=== PATIENT | female | born 1970 | race African-American/Black ===

== ENCOUNTER 2019-10-13 16:29 | Emergency (ER) | payer MEDICARE, MEDICAID, SELFPAY ==
--- NOTE | ~2019-10-13 | XR_ITS ---
EXAMINATION: XR chest 2V EXAM DATE: 10/13/2019 17:09 INDICATION: Heart fluttering. TECHNIQUE: Frontal and lateral projections of the chest obtained and reviewed. Comparison is made to prior examination from 05/06/2011. FINDINGS: The lungs are clear. There are no pleural effusions. Borderline heart size. There is no pn eumothorax suspected. Mild to moderate sized thoracic endplate osteophytes. IMPRESSION: No acute cardiopulmonary findings. Reviewed, dictated and finalized at location A.
--- NOTE | 2019-10-13 16:40 | ECG_ITS ---
Measurements Intervals [place] Rate: 89 P: 66 CA: 214 QRS: 50 QRSD: 158 T: 81 QT: 419 QTc: 510 Interpretive Statements SINUS RHYTHM WITH FIRST DEGREE AV BLOCK LEFT BUNDLE BRANCH BLOCK BASELINE WANDER- I, II, AVR, AVL, AVF ABNORMAL ECG Electronically Signed On 10-14-2019 7:08:18 CDT by Darryl Moran D.O.
[2019-10-13 16:45] VITALS: BP 131/71; PULSE 88; RESP 20; TEMP 37.1; O2SAT 98
--- NOTE | 2019-10-13 17:08 | ED.CHESTPAIN ---
HPI - Chest Pain General Chief Complaint: Chest Pain Stated Complaint: pain in neck heart flutters Time Seen by Provider: 10/13/19 17:00 Source: patient Mode of arrival: ambulatory Limitations: no limitations History of Present Illness HPI narrative: Radha Rodriguez is a 49 yo female with a PMH of HTN, insulin-dependent diabetes, multiple cardiac stent placement, who comes to express care with complaints of shortness of breath and fluttering in her chest that started yesterday. 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 Her last A1c was 6.8 Related Data Home Medications Medication Instructions Recorded Confirmed albuterol sulfate [Ventolin HFA] 2 puff INHALATION QID PRN 10/13/19 10/13/19 dulaglutide [Trulicity] 1.5 mg SUBCUT WEEKLY 10/13/19 10/13/19 ergocalciferol (vitamin D2) 50,000 unit PO WEEKLY 10/13/19 10/13/19 [Vitamin D2] ferrous sulfate 325 mg PO BID 10/13/19 10/13/19 fluticasone propionate 1 spray INTRANASAL BID 10/13/19 10/13/19 furosemide 40 mg PO DAILY 10/13/19 10/13/19 hydrocodone-acetaminophen 1 tablet PO Q6H PRN 10/13/19 10/13/19 insulin glargine [Lantus U-100 10 unit SUBCUT 10/13/19 10/13/19 Insulin] insulin lispro [Humalog U-100 45 unit SUBCUT 10/13/19 10/13/19 Insulin] isosorbide mononitrate 30 mg PO DAILY 10/13/19 10/13/19 levocetirizine 5 mg PO DAILY 10/13/19 10/13/19 metoprolol tartrate 50 mg PO Q12H 10/13/19 10/13/19 montelukast 10 mg PO DAILY 10/13/19 10/13/19 nitroglycerin 1 spray TRANSLINGUAL Q5M PRN 10/13/19 10/13/19 pantoprazole 40 mg PO QAM 10/13/19 10/13/19 potassium chloride 10 meq PO DAILY 10/13/19 10/13/19 rosuvastatin 20 mg PO DAILY 10/13/19 10/13/19 ticagrelor [Brilinta] 90 mg PO Q12H 10/13/19 10/13/19 Allergies Allergy/AdvReac Type Severity Reaction Status Date / Time No Known Allergies Allergy Unverified 05/06/11 09:43 Review of Systems Review of Systems: Narrative: CONSTITUTIONAL: Denies fever, chills, sweats. EYES: Denies visual changes, redness, discharge. ENT: Denies rhinorrhea, congestion, sore throat, otalgia. CARDIOVASCULAR: Denies chest pain, palpitations, edema. Has chest fluttering RESPIRATORY: Denies dyspnea, wheezing, cough has also be GASTROINTESTINAL: Denies abdominal pain, nausea, vomiting, diarrhea. GENITOURINARY: Denies dysuria, hematuria, abnormal discharge SKIN: Denies rash or itching. NEUROLOGIC: Denies numbness, or focal weakness. PSYCHIATRIC: Denies anxiety or depression. PMFSH Family History Family History Other Hypertension Social History Social History (Updated 10/13/19 @ 17:13 by Marjorie Oseguera CNP) Smoking status: Never smoker Alcohol intake: never Comments At time of signature, I agree with nursing past medical, surgical, social and family history. There is no relevant family history pertinent to the presenting complaint. Exam Narrative: Exam Narrative: GENERAL: This is a well-nourished, well-developed patient, in mild distress. Morbidly obese HEAD: normocephalic, atraumatic. EYES: PSclera clear/white. Vision is grossly intact. EARS: External ears normal, Hearing grossly intact. NOSE: External nose normal without nasal discharge, nares without redness, no rhinorrhea. THROAT: Mucous membranes moist, NECK: Neck supple, non-tender CARDIOVASCULAR: Regular rate and rhythm without murmurs, gallops, or rubs. RESPIRATORY: Clear to auscultation. Breath sounds equal bilaterally. No wheezes, rales, or rhonchi. GASTROINTESTINAL: Abdomen soft, non-tender, SKIN: warm, intact with no suspicious lesions or rash, good texture and turgor. NEURO: awake, alert, and oriented to person, place and time. There were no obvious focal neurologic abnormalities. Steady gait EXTREMITIES: Normal range of motion. 1+ pitting edema ankles/feet BACK: Nontender without deformity Cours
== END 2019-10-13 17:40 | disposition short-term general hospital (02) ==
PROVIDERS: Emergency Provider Nurse Practitioner
DX: R07.89 Other chest pain (principal); I10 Essential (primary) hypertension; E11.9 Type 2 diabetes mellitus without complications; Z95.5 Presence of coronary angioplasty implant and graft; Z79.4 Long term (current) use of insulin; I25.2 Old myocardial infarction; Z96.641 Presence of right artificial hip joint
CPT/HCPCS: 71046; 93005; 99213; G0463

== ENCOUNTER 2020-01-16 13:58 | Emergency (ER) | payer MEDICARE, MEDICAID, SELFPAY ==
[2020-01-16 14:06] VITALS: BP 150/67; PULSE 94; RESP 24; TEMP 36.5; O2SAT 98
--- NOTE | 2020-01-16 14:22 | ED.GENADULT ---
HPI - General Adult General Chief complaint: Ear Stated complaint: EAR ACHE/PAIN Time Seen by Provider: 01/16/20 14:22 Source: patient and RN notes reviewed Mode of arrival: ambulatory Limitations: no limitations History of Present Illness HPI narrative: 49-year-old female presents with complaints of right otalgia, swelling, and yellow drainage for the past 3 days. Radha says she gets water into ears at times when she washes her hair. Peroxide with q-tip and [place] oil in ear without relief. Vicodin with some relief. Denies trouble hearing. Denies URI symptoms. No high fevers or chills. Denies injury to the ear. No nasal drainage and congestion. Denies nausea, vomiting, tinnitus, and dizziness. LMP 1 week ago. Remains active. The patient reports she have not been diagnosed with COVID-19. The patient reports she is not waiting for the results of a COVID-19 lab test. The patient reports she do not have fever, chills, weakness, fatigue, myalgia, or facial swelling. The patient reports she do not have a new or worsening cough or shortness of breath. Denies chest pain. The patient reports she do not have any rhinorrhea, congestion, sore throat, abdominal pain, and diarrhea. Tolerating po intake well. Denies recent traveling. Denies concerns for COVID-19 or exposures been home with limited outdoor exposure except for essential household needs, work, and return home. At this time, patient is not suspected of having COVID-19. Some parts of this dictation were generated by voice recognition software and may contain typographical and/or grammatical inaccuracies. Related Data Home Medications Medication Instructions Recorded Confirmed dulaglutide [Trulicity] 1.5 mg SUBCUT WEEKLY 10/13/19 01/16/20 ferrous sulfate 325 mg PO BID 10/13/19 01/16/20 fluticasone propionate 1 spray INTRANASAL BID 10/13/19 01/16/20 furosemide 40 mg PO DAILY 10/13/19 01/16/20 insulin glargine [Lantus U-100 10 unit SUBCUT 10/13/19 01/16/20 Insulin] insulin lispro [Humalog U-100 45 unit SUBCUT 10/13/19 01/16/20 Insulin] isosorbide mononitrate 30 mg PO DAILY 10/13/19 01/16/20 levocetirizine 5 mg PO DAILY 10/13/19 01/16/20 metoprolol tartrate 50 mg PO Q12H 10/13/19 01/16/20 montelukast 10 mg PO DAILY 10/13/19 01/16/20 nitroglycerin 1 spray TRANSLINGUAL Q5M PRN 10/13/19 01/16/20 pantoprazole 40 mg PO QAM 10/13/19 01/16/20 potassium chloride 10 meq PO DAILY 10/13/19 01/16/20 rosuvastatin 20 mg PO DAILY 10/13/19 01/16/20 ticagrelor [Brilinta] 90 mg PO Q12H 10/13/19 01/16/20 aspirin 81 mg PO DAILY 01/16/20 01/16/20 Allergies Allergy/AdvReac Type Severity Reaction Status Date / Time Penicillins Allergy Rash Verified 01/16/20 14:19 Review of Systems Review of Systems: Narrative: CONSTITUTIONAL: Denies fever, chills, sweats. EYES: Denies visual changes, redness, discharge. ENT: Denies rhinorrhea, congestion, sore throat. Complains of right otalgia, swelling, and yellow drainage. Denies itching. CARDIOVASCULAR: Denies chest pain, palpitations, edema. RESPIRATORY: Denies dyspnea, wheezing, cough. GASTROINTESTINAL: Denies abdominal pain, nausea, vomiting, diarrhea. GENITOURINARY: Denies dysuria, hematuria, abnormal discharge. SKIN: Denies rash or itching. MUSCULOSKELETAL: Denies acute back pain, joint pain, or myalgia. NEUROLOGIC: Denies numbness or focal weakness. PSYCHIATRIC: Denies anxiety or depression. All systems reviewed & are unremarkable except as noted in HPI and below. [facility] Past Medical History Medical History (Updated 01/16/20 @ 15:52 by SEBASTIAN Jj) Allergies Bronchitis delivery delivered X1 Diabetes History of gastroesophageal reflux (GERD) HTN (hypertension) Hypercholesteremia Myocardial infarct Surgical History Surgical History (Updated 01/16/20 @ 15:52 by SEBASTIAN Jj) H/O section H/O heart artery stent History of arthroscopic knee surgery Left knee, fluid drained from left kne
== END 2020-01-16 14:32 | disposition home or self-care (01) ==
PROVIDERS: Emergency Provider Nurse Practitioner Family
DX: H60.331 Swimmer's ear, right ear (principal); E11.9 Type 2 diabetes mellitus without complications; I10 Essential (primary) hypertension; I25.2 Old myocardial infarction; Z79.4 Long term (current) use of insulin; Z79.82 Long term (current) use of aspirin; Z87.891 Personal history of nicotine dependence
CPT/HCPCS: 99213; G0463